=== PATIENT | female | born 1970 | race African-American/Black ===

== ENCOUNTER 2016-12-25 23:04 | Emergency (ER) | payer OTHER, SELFPAY ==
--- NOTE | 2016-12-25 23:49 | RAD ---
TWO VIEWS CHEST: Comparison: 07-06-16 History: Cough since . FINDINGS: Two views of the chest show normal sized cardiomediastinal silhouette. There is no evidence of conso lidation, mass, or pleural effusion. The bones are unremarkable. IMPRESSION: No evidence of acute cardiopulmonary disease. POS: [facility]
== END 2016-12-25 23:55 | disposition home or self-care (01) ==
LOC: BURERS 23:04
DX: J06.9 Acute upper respiratory infection, unspecified (principal); I10 Essential (primary) hypertension; F17.210 Nicotine dependence, cigarettes, uncomplicated
CPT/HCPCS: 71020

== ENCOUNTER 2017-02-23 22:35 | Emergency (ER) | payer OTHER ==
[2017-02-23] MEDS ORDERED: Ketorolac Tromethamine 60 MG/2 ML VIAL ONE (23:30)
--- NOTE | 2017-02-24 07:29 | RAD ---
CHEST 2 VIEWS: Date: 02/23/17 Comparison is made with the 12/25/16 study. FINDINGS: The heart remains normal in size. The size is marginally larger than before, but within limits of ph ase of cardiac cycle. There is no vascular congestion or edema. No focal pulmonary infiltrates are s een. The mediastinum appears normal. The trachea is midline. IMPRESSION: No acute thoracic finding. POS: [facility]
--- NOTE | 2017-02-24 07:30 | RAD ---
RIGHT SHOULDER 3 VIEWS: Date: 02/23/17 FINDINGS: No fracture, dislocation, or AC joint widening seen. No periarticular calcifications were seen. Ther e were no findings to explain shoulder pain. IMPRESSION: No acute findings. POS: [facility]
== END 2017-02-23 23:56 | disposition home or self-care (01) ==
LOC: BURERS 22:35
DX: M75.101 Unspecified rotator cuff tear or rupture of right shoulder, not specified as traumatic (principal); I10 Essential (primary) hypertension; F17.210 Nicotine dependence, cigarettes, uncomplicated
CPT/HCPCS: 71020; 93005; 96372; J1885

== ENCOUNTER 2017-11-21 11:35 | Emergency (ER) | payer OTHER, SELFPAY ==
[2017-11-21] MEDS ORDERED: Dicyclomine 20 MG TAB ONE (12:06)
[2017-11-21] MEDS ORDERED: Ondansetron ODT 4 MG TAB ONE (12:06)
== END 2017-11-21 12:10 | disposition home or self-care (01) ==
LOC: BURERS 11:35
DX: A08.4 Viral intestinal infection, unspecified (principal); I10 Essential (primary) hypertension; F17.210 Nicotine dependence, cigarettes, uncomplicated
CPT/HCPCS: 99283; Q0162

== ENCOUNTER 2019-04-02 20:44 | Emergency (ER) | payer OTHER ==
[2019-04-02] MEDS ORDERED: Cyclobenzaprine 10 MG TAB ONE (21:13)
== END 2019-04-02 21:16 | disposition home or self-care (01) ==
LOC: BURERS 20:44
DX: S16.1XXA Strain of muscle, fascia and tendon at neck level, initial encounter (principal); I10 Essential (primary) hypertension; F17.210 Nicotine dependence, cigarettes, uncomplicated; Z79.899 Other long term (current) drug therapy; X50.9XXA Other and unspecified overexertion or strenuous movements or postures, initial encounter
CPT/HCPCS: 99283

== ENCOUNTER 2020-10-18 17:47 | Emergency (ER) | payer OTHER ==
[2020-10-18] MEDS ORDERED: Hyoscyamine Sulfate SL 0.125 mg Tablet ONE (18:46)
[2020-10-18] MEDS ORDERED: Ondansetron ODT 4 MG TAB ONE (18:46)
== END 2020-10-18 18:52 | disposition home or self-care (01) ==
LOC: BURERS 17:47
DX: K52.9 Noninfective gastroenteritis and colitis, unspecified (principal); F17.210 Nicotine dependence, cigarettes, uncomplicated; Z79.899 Other long term (current) drug therapy
CPT/HCPCS: 99283; Q0162

== ENCOUNTER 2021-04-08 21:43 | Emergency (ER) | payer OTHER ==
[2021-04-08 22:39] LABS: Bilirubin Negative (Negative); Blood, Urine Moderate (Negative); Clarity Clear (Clear); Glucose, Urine (Dipstick) Negative (Negative); Ketone, Urine Trace mg/dL (Negative); Leukocyte Large (Negative); Nitrite Positive (Negative); Protein, Urine (Dipstick) Trace mg/dL (Neg-Trace); Specific Gravity, Urine 1.025 (1.005-1.030); Urobilinogen 0.2 mg/dL (Less than 2)
[2021-04-08 22:48] LABS: Bacteria/HPF Rare-Few HPF (None Seen); Squamous Epithelial 0-3 HPF (0-3); WBC/HPF Greater Than 50 HPF (0-3)
== END 2021-04-08 23:20 | disposition home or self-care (01) ==
LOC: BURERS 21:43
DX: N39.0 Urinary tract infection, site not specified (principal); L02.211 Cutaneous abscess of abdominal wall; I10 Essential (primary) hypertension; F17.210 Nicotine dependence, cigarettes, uncomplicated; Z79.899 Other long term (current) drug therapy
CPT/HCPCS: 81003; 81015; 87077; 87086; 87186; 99283

== ENCOUNTER 2021-04-24 08:37 | Emergency (ER) | payer OTHER | END 2021-04-24 10:03 | disposition home or self-care (01) | LOC: BURERS 08:37 | DX: L02.211 Cutaneous abscess of abdominal wall (principal); B35.1 Tinea unguium; I10 Essential (primary) hypertension; F17.210 Nicotine dependence, cigarettes, uncomplicated; Z79.899 Other long term (current) drug therapy | CPT/HCPCS: 10060 ==

== ENCOUNTER 2021-06-30 11:52 | Emergency (ER) | payer OTHER ==
[2021-06-30 23:10] LABS: SARS-CoV-2 PCR by NAA Not Detected (NotDetected)
== END 2021-06-30 12:30 | disposition home or self-care (01) ==
LOC: BURERS 11:52
DX: J06.9 Acute upper respiratory infection, unspecified (principal); Z20.822 Contact with and (suspected) exposure to COVID-19; I10 Essential (primary) hypertension; F17.210 Nicotine dependence, cigarettes, uncomplicated; Z79.899 Other long term (current) drug therapy
CPT/HCPCS: 87804; 99283; U0003; U0005

== ENCOUNTER 2021-09-02 18:37 | Emergency (ER) | payer BC, OTHER ==
[2021-09-02] MEDS ORDERED: Losartan 25 MG TAB ONE (19:46)
[2021-09-02] MEDS ORDERED: predniSONE 20 MG TAB ONE (20:02)
[2021-09-03 21:39] LABS: SARS-CoV-2 PCR by NAA Indeterminate (NotDetected)
== END 2021-09-02 20:13 | disposition home or self-care (01) ==
LOC: BURERS 18:37
DX: B34.9 Viral infection, unspecified (principal); I10 Essential (primary) hypertension; F17.210 Nicotine dependence, cigarettes, uncomplicated; Z20.822 Contact with and (suspected) exposure to COVID-19
CPT/HCPCS: 71045; J7512; U0003; U0005

== ENCOUNTER 2022-11-16 13:02 | Emergency (ER) | payer BC ==
[2022-11-16 14:21] LABS: Anion Gap 10 mmol/L (10-20); BUN (Urea Nitrogen) 10 mg/dL (7.0-18.7); Calc. Creatinine Clearance 0 mL/min (70-130); Calcium 8.9 mg/dL (7.8-10.44); Carbon Dioxide 26 mmol/L (22-29); Chloride 108 mmol/L (98-107); Estimated GFR 87; Glucose 97 mg/dL (70-105); Potassium 4.3 mmol/L (3.5-5.1); Sodium 140 mmol/L (136-145)
== END 2022-11-16 14:07 | disposition home or self-care (01) ==
LOC: BURERS 13:02
DX: S46.912A Strain of unspecified muscle, fascia and tendon at shoulder and upper arm level, left arm, initial encounter (principal); M62.838 Other muscle spasm; I10 Essential (primary) hypertension; F17.210 Nicotine dependence, cigarettes, uncomplicated; Z79.899 Other long term (current) drug therapy
CPT/HCPCS: 36415; 80048; 99283

== ENCOUNTER 2023-05-21 13:46 | Emergency (ER) | payer BC | END 2023-05-21 14:38 | disposition home or self-care (01) | LOC: BURERS 13:46 | DX: B34.9 Viral infection, unspecified (principal); I10 Essential (primary) hypertension; F17.210 Nicotine dependence, cigarettes, uncomplicated; Z79.899 Other long term (current) drug therapy | CPT/HCPCS: 71045; 87081; 87430; 87804 ==